=== PATIENT | male | born 1970 | race African-American/Black ===

== ENCOUNTER 2021-05-19 16:23 | Inpatient (IN) | payer SELFPAY ==
[~2021-05-19] VITALS: Ht 180.3 cm; Wt 167.8 kg
[2021-05-19] MEDS ORDERED: ASPIRIN 81 MG CHEW TAB PO ONE ×2 (17:00→20:00)
[2021-05-19] MEDS ORDERED: FUROSEMIDE INJ 10 MG/ML 4 ML VIAL IV ONE (17:00)
[2021-05-19 17:07] LABS: BASOPHILS # (AUTO) 0.1 (0.0-0.1); BASOPHILS % 0.6 % (0.0-1.0); EOSINOPHILS # (AUTO) 0.4 (0.0-0.4); HEMATOCRIT 42.7 % (38.2-49.6); HEMOGLOBIN 13.1 g/dL (14.0-18.0); LYMPHOCYTES # (AUTO) 3.3 (1.0-3.2); LYMPHOCYTES % 18.6 % (18.0-39.1); MEAN CORPUSCULAR HEMOGLOBIN 28.1 pg (28-32); MEAN CORPUSCULAR HGB CONC 30.7 g/dL (31-35); MEAN CORPUSCULAR VOLUME 91.6 fL (81-99); MONOCYTES # (AUTO) 1.4 (0.2-0.8); MONOCYTES % 7.6 % (4.4-11.3); NEUTROPHILS # (AUTO) 12.7 (2.1-6.9); NEUTROPHILS % 70.8 % (38.7-80.0); PLATELET COUNT 217 x10e3/uL (140-360); RED BLOOD COUNT 4.66 x10e6/uL (4.3-5.7); RED CELL DISTRIBUTION WIDTH 14.6 % (11.7-14.4)
[2021-05-19 17:30] LABS: ALBUMIN 3.1 g/dL (3.5-5.0); ALBUMIN/GLOBULIN RATIO 0.8 (0.8-2.0); ANION GAP 11.9 mmol/L (8-16); CALCIUM 8.7 mg/dL (8.4-10.2); CREATININE, SERUM 1.25 mg/dL (0.72-1.25); POTASSIUM 3.9 mmol/L (3.5-5.1)
[2021-05-19 23:20] VITALS: BP 141/86
[2021-05-20] VITALS (9 sets, daily range): BP systolic 131–146; BP diastolic 80–96
[2021-05-20] MEDS ORDERED: LISINOPRIL5 MG PO (01:12)
[2021-05-20] MEDS ORDERED: METOPROLOL TART25 MG PO (01:12)
[2021-05-20] MEDS ORDERED: ASPIRIN81 MG PO (01:12)
[2021-05-20] MEDS ORDERED: LASIX40 MG PO (01:12)
[2021-05-20 05:19] LABS: CREATINE KINASE MB 0.9 ng/mL (0-5.0)
[2021-05-20] MEDS ORDERED: SODIUM CHLORIDE 0.9% 250ML 250 ML ONE (09:33)
[2021-05-20] MEDS: CEFTRIAXONE 1 GM in SODIUM CHLORIDE 0.9% 50ML 50 ML IV SCH (09:41)
[2021-05-20 12:50] LABS: CREATINE KINASE MB 0.9 ng/mL (0-5.0)
[2021-05-20] MEDS: FUROSEMIDE INJ 10 MG/ML 4 ML VIAL IV SCH (16:44)
[2021-05-20] MEDS: AZITHROMYCIN 250 MG TAB PO SCH (16:44)
[2021-05-21] VITALS (7 sets, daily range): BP systolic 130–161; BP diastolic 71–104
[2021-05-21] MEDS: CEFTRIAXONE 1 GM in SODIUM CHLORIDE 0.9% 50ML 50 ML IV SCH (08:39)
[2021-05-21] MEDS: FUROSEMIDE INJ 10 MG/ML 4 ML VIAL IV SCH ×2 (08:39→16:48)
[2021-05-21] MEDS ORDERED: FUROSEMIDE 40 MG TAB PO SCH (09:00)
[2021-05-21] MEDS ORDERED: REGADENOSON 0.4 MG/5 ML SYR IV ONE (12:47)
[2021-05-21 14:04] LABS: BASOPHILS # (AUTO) 0.1 (0.0-0.1); BASOPHILS % 0.4 % (0.0-1.0); EOSINOPHILS # (AUTO) 0.3 (0.0-0.4); EOSINOPHILS % 1.7 % (0.0-6.0); HEMATOCRIT 48.7 % (38.2-49.6); HEMOGLOBIN 14.9 g/dL (14.0-18.0); LYMPHOCYTES # (AUTO) 2.1 (1.0-3.2); LYMPHOCYTES % 13.4 % (18.0-39.1); MEAN CORPUSCULAR HEMOGLOBIN 27.9 pg (28-32); MEAN CORPUSCULAR HGB CONC 30.6 g/dL (31-35); MEAN CORPUSCULAR VOLUME 91.2 fL (81-99); MONOCYTES # (AUTO) 0.6 (0.2-0.8); MONOCYTES % 3.9 % (4.4-11.3); NEUTROPHILS # (AUTO) 12.8 (2.1-6.9); NEUTROPHILS % 80.3 % (38.7-80.0); PLATELET COUNT 249 x10e3/uL (140-360); RED BLOOD COUNT 5.34 x10e6/uL (4.3-5.7); RED CELL DISTRIBUTION WIDTH 14.1 % (11.7-14.4)
[2021-05-21 14:24] LABS: ANION GAP 16.1 mmol/L (8-16); CALCIUM 9.3 mg/dL (8.4-10.2); CREATININE, SERUM 1.34 mg/dL (0.72-1.25); POTASSIUM 4.1 mmol/L (3.5-5.1)
[2021-05-21] MEDS: LISINOPRIL 2.5 MG TAB PO SCH (16:47)
[2021-05-21] MEDS: ASPIRIN 81 MG CHEW TAB PO SCH (16:47)
[2021-05-21] MEDS: METOPROLOL TARTRATE 25 MG TAB PO SCH (16:47)
[2021-05-21] MEDS: AZITHROMYCIN 250 MG TAB PO SCH (16:48)
[2021-05-22] VITALS: BP 126/78
[2021-05-22 04:00] VITALS: BP 111/76
[2021-05-22 08:00] VITALS: BP 130/71
[2021-05-22 08:23] VITALS: BP 130/71
[2021-05-22 12:21] VITALS: BP 134/77
[2021-05-22] MEDS: CEFTRIAXONE 1 GM in SODIUM CHLORIDE 0.9% 50ML 50 ML IV SCH (12:25)
[2021-05-22] MEDS: METOPROLOL TARTRATE 25 MG TAB PO SCH (12:25)
[2021-05-22] MEDS: FUROSEMIDE INJ 10 MG/ML 4 ML VIAL IV SCH (12:25)
[2021-05-22] MEDS: LISINOPRIL 2.5 MG TAB PO SCH (12:25)
[2021-05-22] MEDS: ASPIRIN 81 MG CHEW TAB PO SCH (12:34)
[2021-05-22 16:30] VITALS: BP 115/80
[2021-05-22] MEDS ORDERED: ZITHROMAX250 MG PO (16:41)
[2021-05-22] MEDS: AZITHROMYCIN 250 MG TAB PO SCH (16:47)
[2021-05-22 17:07] LABS: BASOPHILS # (AUTO) 0.1 (0.0-0.1); BASOPHILS % 0.6 % (0.0-1.0); EOSINOPHILS # (AUTO) 0.4 (0.0-0.4); EOSINOPHILS % 2.5 % (0.0-6.0); HEMATOCRIT 44.9 % (38.2-49.6); HEMOGLOBIN 13.7 g/dL (14.0-18.0); LYMPHOCYTES # (AUTO) 2.9 (1.0-3.2); LYMPHOCYTES % 20.1 % (18.0-39.1); MEAN CORPUSCULAR HEMOGLOBIN 27.5 pg (28-32); MEAN CORPUSCULAR HGB CONC 30.5 g/dL (31-35); MONOCYTES # (AUTO) 1.2 (0.2-0.8); MONOCYTES % 8.4 % (4.4-11.3); NEUTROPHILS # (AUTO) 9.6 (2.1-6.9); NEUTROPHILS % 67.8 % (38.7-80.0); PLATELET COUNT 221 x10e3/uL (140-360); RED BLOOD COUNT 4.99 x10e6/uL (4.3-5.7); RED CELL DISTRIBUTION WIDTH 14.3 % (11.7-14.4)
[2021-05-22] MEDS ORDERED: FUROSEMIDE INJ 10 MG/ML 4 ML VIAL IV SCH (21:00)
== END 2021-05-22 17:40 | disposition home or self-care (01) | DRG 193 ==
LOC: ER 16:42 → ERHOLD 19:59 → MED/SURG 23:00 → OBSVTOIN 05-20 10:24
PROVIDERS: ADMIT Internal Medicine; ATTEND Internal Medicine
DX: J18.9 Pneumonia, unspecified organism (principal); I50.23 Acute on chronic systolic (congestive) heart failure; Z68.43 Body mass index [BMI] 50.0-59.9, adult; I11.0 Hypertensive heart disease with heart failure; E66.01 Morbid (severe) obesity due to excess calories; G47.33 Obstructive sleep apnea (adult) (pediatric); Z20.822 Contact with and (suspected) exposure to COVID-19; Z93.3 Colostomy status; R91.1 Solitary pulmonary nodule
CPT/HCPCS: 36415; 71045; 71250; 78452; 80048; 80053; 80061; 82550; 82553; 83880; 84484; 85025; 85379; 93005; 93017; 93306; 94799; 99284; A9502; G0378; J0456; J0696; J1940; J7050; U0002

== ENCOUNTER 2021-06-18 13:24 | Emergency (ER) | payer SELFPAY ==
[~2021-06-18] VITALS: Ht 180.3 cm; Wt 167.8 kg
[~2021-06-18 13:24] MED LIST: ASPIRIN81 MG PO; LASIX40 MG PO; LISINOPRIL5 MG PO; METOPROLOL TART25 MG PO; ZITHROMAX250 MG PO
[2021-06-18] MEDS ORDERED: FUROSEMIDE INJ 10 MG/ML 4 ML VIAL IV ONE (13:30)
[2021-06-18] MEDS ORDERED: LASIX40 MG PO (13:35)
[2021-06-18 13:47] LABS: BASOPHILS # (AUTO) 0.1 (0.0-0.1); BASOPHILS % 0.4 % (0.0-1.0); EOSINOPHILS # (AUTO) 0.3 (0.0-0.4); EOSINOPHILS % 1.9 % (0.0-6.0); HEMATOCRIT 46.9 % (38.2-49.6); HEMOGLOBIN 14.4 g/dL (14.0-18.0); LYMPHOCYTES # (AUTO) 2.7 (1.0-3.2); LYMPHOCYTES % 16.3 % (18.0-39.1); MEAN CORPUSCULAR HEMOGLOBIN 28.2 pg (28-32); MEAN CORPUSCULAR HGB CONC 30.7 g/dL (31-35); MEAN CORPUSCULAR VOLUME 91.8 fL (81-99); MONOCYTES # (AUTO) 1.5 (0.2-0.8); NEUTROPHILS # (AUTO) 12.2 (2.1-6.9); PLATELET COUNT 270 x10e3/uL (140-360); RED BLOOD COUNT 5.11 x10e6/uL (4.3-5.7); RED CELL DISTRIBUTION WIDTH 14.5 % (11.7-14.4)
[2021-06-18 14:08] LABS: ALBUMIN 3.6 g/dL (3.5-5.0); ALBUMIN/GLOBULIN RATIO 0.8 (0.8-2.0); CALCIUM 9.9 mg/dL (8.4-10.2); CREATININE, SERUM 1.12 mg/dL (0.72-1.25)
== END 2021-06-18 15:24 | disposition home or self-care (01) ==
LOC: ER 13:28
DX: R06.02 Shortness of breath (principal); E87.70 Fluid overload, unspecified; I50.9 Heart failure, unspecified; I10 Essential (primary) hypertension; R94.31 Abnormal electrocardiogram [ECG] [EKG]
CPT/HCPCS: 36415; 71045; 80053; 83605; 83880; 84484; 85025; 87040; 93005; 99284; J1940

== ENCOUNTER 2021-10-30 14:05 | Inpatient (IN) | payer SELFPAY ==
[~2021-10-30] VITALS: Ht 180.3 cm; Wt 167.8 kg
[2021-10-30] MEDS ORDERED: ASPIRIN 325 MG TAB PO ONE (14:30)
[2021-10-30] MEDS ORDERED: SODIUM CHLORIDE FLUSH 10 ML SYR IV PRN (14:30)
[2021-10-30 15:10] LABS: BASOPHILS # (AUTO) 0.1 (0.0-0.1); BASOPHILS % 0.7 % (0.0-1.0); EOSINOPHILS # (AUTO) 0.4 (0.0-0.4); EOSINOPHILS % 2.8 % (0.0-6.0); HEMATOCRIT 43.9 % (38.2-49.6); HEMOGLOBIN 13.6 g/dL (14.0-18.0); LYMPHOCYTES # (AUTO) 2.4 (1.0-3.2); LYMPHOCYTES % 18.5 % (18.0-39.1); MEAN CORPUSCULAR HEMOGLOBIN 28.3 pg (28-32); MEAN CORPUSCULAR VOLUME 91.3 fL (81-99); MONOCYTES # (AUTO) 0.9 (0.2-0.8); NEUTROPHILS # (AUTO) 9.1 (2.1-6.9); NEUTROPHILS % 70.7 % (38.7-80.0); PLATELET COUNT 261 x10e3/uL (140-360); RED BLOOD COUNT 4.81 x10e6/uL (4.3-5.7); RED CELL DISTRIBUTION WIDTH 13.2 % (11.7-14.4)
[2021-10-30 15:20] LABS: AMPHETAMINES SCREEN,URINE NEGATIVE (NEGATIVE); BENZODIAZEPINES SCREEN,URINE NEGATIVE (NEGATIVE); PHENCYCLIDINE SCREEN,URINE NEGATIVE (NEGATIVE)
[2021-10-30 15:25] LABS: INR 0.87; PROTHROMBIN TIME 12.6 seconds (11.9-14.5)
[2021-10-30 15:26] LABS: PARTIAL THROMBOPLASTIN TIME 28.1 seconds (23.8-35.5)
[2021-10-30 15:32] LABS: ALBUMIN/GLOBULIN RATIO 0.6 (0.8-2.0); CREATININE, SERUM 1.18 mg/dL (0.72-1.25)
[2021-10-30 15:38] LABS: CALCIUM 8.3 mg/dL (8.4-10.2)
[2021-10-30] MEDS ORDERED: ASPIRIN 81 MG CHEW TAB PO ONE (16:15)
[2021-10-30] MEDS ORDERED: Morphine 4mg Syringe 4 MG/ML INJ IV PRN (16:15)
[2021-10-30] MEDS ORDERED: ONDANSETRON HCL INJ 2MG/ML 2ML 2 MG/ML VIAL IV PRN ×2 (16:15→18:15)
[2021-10-30] MEDS ORDERED: ACETAMINOPHEN 325 MG TAB PO PRN (18:15)
[2021-10-30] MEDS ORDERED: DOCUSATE SODIUM 100 MG CAP PO PRN (18:15)
[2021-10-30 18:32] LABS: CHOL/HDL RATIO 4.7 (3.9-4.7)
[2021-10-30 20:00] VITALS: BP 144/94
[2021-10-30] MEDS: FUROSEMIDE INJ 10 MG/ML 4 ML VIAL IV SCH ×2 (20:50→22:48)
[2021-10-30 21:55] LABS: CREATINE KINASE MB 0.8 ng/mL (0-5.0)
[2021-10-31] VITALS (7 sets, daily range): BP systolic 137–159; BP diastolic 79–97
[2021-10-31] MEDS ORDERED: ASPIRIN 81 MG CHEW TAB PO ONE (00:45)
[2021-10-31 06:35] LABS: BASOPHILS # (AUTO) 0.1 (0.0-0.1); BASOPHILS % 0.6 % (0.0-1.0); EOSINOPHILS # (AUTO) 0.4 (0.0-0.4); EOSINOPHILS % 3.3 % (0.0-6.0); HEMATOCRIT 46.7 % (38.2-49.6); HEMOGLOBIN 14.4 g/dL (14.0-18.0); LYMPHOCYTES # (AUTO) 1.9 (1.0-3.2); LYMPHOCYTES % 16.4 % (18.0-39.1); MEAN CORPUSCULAR HEMOGLOBIN 28.4 pg (28-32); MEAN CORPUSCULAR HGB CONC 30.8 g/dL (31-35); MEAN CORPUSCULAR VOLUME 92.1 fL (81-99); MONOCYTES # (AUTO) 0.9 (0.2-0.8); MONOCYTES % 7.9 % (4.4-11.3); NEUTROPHILS % 71.5 % (38.7-80.0); PLATELET COUNT 238 x10e3/uL (140-360); RED BLOOD COUNT 5.07 x10e6/uL (4.3-5.7); RED CELL DISTRIBUTION WIDTH 13.3 % (11.7-14.4)
[2021-10-31 07:04] LABS: ALBUMIN 3.3 g/dL (3.5-5.0); ALBUMIN/GLOBULIN RATIO 0.7 (0.8-2.0); ANION GAP 12.2 mmol/L (8-16); CREATININE, SERUM 1.25 mg/dL (0.72-1.25); POTASSIUM 4.2 mmol/L (3.5-5.1)
[2021-10-31 07:20] LABS: CREATINE KINASE 134 IU/L (30-200)
[2021-10-31] MEDS ORDERED: FUROSEMIDE 40 MG TAB PO SCH (09:00)
[2021-10-31] MEDS: ASPIRIN 81 MG CHEW TAB PO SCH (10:28)
[2021-10-31] MEDS: FUROSEMIDE INJ 10 MG/ML 4 ML VIAL IV SCH ×2 (10:28→21:10)
[2021-10-31] MEDS: METFORMIN HCL 500 MG TAB PO SCH ×2 (10:30→11:06)
[2021-10-31] MEDS: METOPROLOL TARTRATE 25 MG TAB PO SCH (10:30)
[2021-10-31] MEDS: LISINOPRIL 2.5 MG TAB PO SCH (10:30)
[2021-10-31 13:29] LABS: CREATINE KINASE MB 0.8 ng/mL (0-5.0)
[2021-11-01] VITALS: BP 148/86
[2021-11-01 04:00] VITALS: BP 137/77
[2021-11-01 05:56] LABS: ANION GAP 13.8 mmol/L (8-16); CALCIUM 9.3 mg/dL (8.4-10.2); CREATININE, SERUM 1.26 mg/dL (0.72-1.25); POTASSIUM 3.8 mmol/L (3.5-5.1)
[2021-11-01 08:06] VITALS: BP 120/82
[2021-11-01 10:02] VITALS: BP 120/82
[2021-11-01] MEDS: FUROSEMIDE INJ 10 MG/ML 4 ML VIAL IV SCH (10:31)
[2021-11-01] MEDS: ASPIRIN 81 MG CHEW TAB PO SCH (10:32)
[2021-11-01] MEDS: METFORMIN HCL 500 MG TAB PO SCH (10:32)
[2021-11-01] MEDS: METOPROLOL TARTRATE 25 MG TAB PO SCH (10:36)
[2021-11-01] MEDS: LISINOPRIL 2.5 MG TAB PO SCH (10:37)
[2021-11-01 11:22] VITALS: BP 136/79
[2021-11-01] MEDS ORDERED: PANTOPRAZOLE SOD 40 MG TABEC PO SCH (13:45)
[2021-11-01] MEDS ORDERED: MELOXICAM 7.5 MG TAB PO SCH (13:45)
[2021-11-01] MEDS ORDERED: PANTOPRAZOLE SO40 MG PO (14:07)
[2021-11-01] MEDS ORDERED: LASIX40 MG PO (14:07)
[2021-11-01] MEDS ORDERED: METFORMIN HCL500 MG PO (14:07)
[2021-11-01] MEDS ORDERED: MELOXICAM7.5 MG PO (14:07)
[2021-11-01] MEDS ORDERED: K DUR10 MEQ PO (14:07)
== END 2021-11-01 16:58 | disposition home or self-care (01) | DRG 291 ==
LOC: ER 14:14 → ERHOLD 16:09 → MED/SURG2 18:35 → OBSVTOIN 10-31 17:35
PROVIDERS: ADMIT Internal Medicine; ATTEND Internal Medicine
DX: I11.0 Hypertensive heart disease with heart failure (principal); I50.33 Acute on chronic diastolic (congestive) heart failure; J96.01 Acute respiratory failure with hypoxia; Z68.43 Body mass index [BMI] 50.0-59.9, adult; E66.01 Morbid (severe) obesity due to excess calories; G47.33 Obstructive sleep apnea (adult) (pediatric); Z99.81 Dependence on supplemental oxygen; R73.03 Prediabetes; Z20.822 Contact with and (suspected) exposure to COVID-19
CPT/HCPCS: 36415; 71045; 80048; 80053; 80061; 80307; 82550; 82553; 83036; 83880; 84484; 85025; 85610; 85730; 93005; 93306; 94660; 94760; 94799; 99284; G0378; J1940; J2270; J2405; U0002

== ENCOUNTER 2022-10-10 14:04 | Inpatient (IN) | payer SELFPAY ==
[~2022-10-10] VITALS: Ht 180.3 cm; Wt 147.4 kg
[~2022-10-10 14:04] MED LIST changes: +Benzonatate PO; +CEPHALEXIN500 MG PO; +K DUR10 MEQ PO; +MELOXICAM7.5 MG PO; +METFORMIN HCL500 MG PO; +NICODERM CQ1 EAC2 TOP; +NORVASC10 MG PO; +PANTOPRAZOLE SO40 MG PO; +ZITHROMAX500 MG PO
[2022-10-10] MEDS ORDERED: ASPIRIN 81 MG CHEW TAB PO ONE ×2 (14:45→18:00)
[2022-10-10 15:21] LABS: BASOPHILS # (AUTO) 0.1 (0.0-0.1); BASOPHILS % 0.5 % (0.0-1.0); EOSINOPHILS # (AUTO) 0.3 (0.0-0.4); EOSINOPHILS % 1.6 % (0.0-6.0); HEMATOCRIT 44.8 % (38.2-49.6); HEMOGLOBIN 13.7 g/dL (14.0-18.0); LYMPHOCYTES # (AUTO) 1.9 (1.0-3.2); LYMPHOCYTES % 11.9 % (18.0-39.1); MEAN CORPUSCULAR HEMOGLOBIN 29.1 pg (28-32); MEAN CORPUSCULAR HGB CONC 30.6 g/dL (31-35); MEAN CORPUSCULAR VOLUME 95.3 fL (81-99); NEUTROPHILS % 79.6 % (38.7-80.0); PLATELET COUNT 243 x10e3/uL (140-360); RED CELL DISTRIBUTION WIDTH 13.4 % (11.7-14.4)
[2022-10-10 15:31] LABS: INR 0.97; PROTHROMBIN TIME 13.4 seconds (11.9-14.5)
[2022-10-10 15:32] LABS: PARTIAL THROMBOPLASTIN TIME 28.2 seconds (23.8-35.5)
[2022-10-10] MEDS ORDERED: ASPIRIN 81 MG CHEW TAB PO STA (15:33)
[2022-10-10 15:44] LABS: ALBUMIN 3.3 g/dL (3.5-5.0); ALBUMIN/GLOBULIN RATIO 0.7 (0.8-2.0); CALCIUM 9.3 mg/dL (8.4-10.2); CREATININE, SERUM 1.21 mg/dL (0.72-1.25)
[2022-10-10 15:51] LABS: CREATINE KINASE MB 1.4 ng/mL (0-5.0)
[2022-10-10] MEDS ORDERED: ASPIRIN 81 MG CHEW TAB ONE (16:11)
[2022-10-10] MEDS ORDERED: CEFTRIAXONE 1 GM VIAL IV ONE (18:00)
[2022-10-10] MEDS ORDERED: ONDANSETRON HCL INJ 2MG/ML 2ML 2 MG/ML VIAL IV PRN (18:00)
[2022-10-10] MEDS ORDERED: SODIUM CHLORIDE FLUSH 10 ML SYR INJ PRN (18:00)
[2022-10-10] MEDS: FUROSEMIDE INJ 10 MG/ML 4 ML VIAL IV SCH (21:55)
[2022-10-10 23:05] LABS: CREATINE KINASE MB 1.2 ng/mL (0-5.0)
[2022-10-11] VITALS (12 sets, daily range): BP systolic 139–158; BP diastolic 82–95; PULSE 72–92; RESP 18–22; TEMP 97.7–98.6; O2SAT 96–100
[2022-10-11] MEDS ORDERED: METOPROLOL TART25 MG PO (01:17)
[2022-10-11] MEDS ORDERED: LISINOPRIL5 MG PO (01:18)
[2022-10-11] MEDS ORDERED: LASIX40 MG PO (01:18)
[2022-10-11 06:03] LABS: BASOPHILS # (AUTO) 0.1 (0.0-0.1); BASOPHILS % 0.5 % (0.0-1.0); EOSINOPHILS # (AUTO) 0.3 (0.0-0.4); HEMATOCRIT 41.3 % (38.2-49.6); HEMOGLOBIN 13.2 g/dL (14.0-18.0); LYMPHOCYTES # (AUTO) 2.5 (1.0-3.2); MEAN CORPUSCULAR HEMOGLOBIN 29.2 pg (28-32); MEAN CORPUSCULAR VOLUME 91.4 fL (81-99); MONOCYTES # (AUTO) 1.2 (0.2-0.8); MONOCYTES % 7.7 % (4.4-11.3); NEUTROPHILS # (AUTO) 11.3 (2.1-6.9); NEUTROPHILS % 73.5 % (38.7-80.0); PLATELET COUNT 236 x10e3/uL (140-360); RED BLOOD COUNT 4.52 x10e6/uL (4.3-5.7); RED CELL DISTRIBUTION WIDTH 13.6 % (11.7-14.4)
[2022-10-11 06:18] LABS: CREATINE KINASE MB 1.1 ng/mL (0-5.0)
[2022-10-11 06:37] LABS: ALBUMIN 3.1 g/dL (3.5-5.0); ALBUMIN/GLOBULIN RATIO 0.7 (0.8-2.0); ANION GAP 11.9 mmol/L (8-16); CALCIUM 8.9 mg/dL (8.4-10.2); CREATININE, SERUM 1.18 mg/dL (0.72-1.25); POTASSIUM 3.9 mmol/L (3.5-5.1)
[2022-10-11] MEDS: FUROSEMIDE INJ 10 MG/ML 4 ML VIAL IV SCH ×2 (09:10→21:58)
[2022-10-11 11:49] LABS: CREATINE KINASE MB 1.3 ng/mL (0-5.0)
[2022-10-11] MEDS: DICLOFENAC SOD 1% GEL 100 GM TUBE TP SCH ×2 (14:22→22:08)
[2022-10-12] VITALS (12 sets, daily range): BP systolic 115–143; BP diastolic 63–90; PULSE 69–86; RESP 16–22; TEMP 97–98.4; O2SAT 95–100
[2022-10-12] MEDS: LISINOPRIL 2.5 MG TAB PO SCH (08:40)
[2022-10-12] MEDS: METOPROLOL TARTRATE 25 MG TAB PO SCH (08:40)
[2022-10-12] MEDS: FUROSEMIDE INJ 10 MG/ML 4 ML VIAL IV SCH ×2 (08:40→21:11)
[2022-10-12] MEDS: DICLOFENAC SOD 1% GEL 100 GM TUBE TP SCH ×3 (09:43→21:12)
[2022-10-12 19:05] LABS: CALCIUM 9.3 mg/dL (8.4-10.2); CREATININE, SERUM 1.42 mg/dL (0.72-1.25)
[2022-10-13] VITALS (8 sets, daily range): BP systolic 100–135; BP diastolic 70–86; PULSE 66–81; RESP 16–21; TEMP 97.4–98; O2SAT 94–100
[2022-10-13] MEDS: LISINOPRIL 2.5 MG TAB PO SCH (08:46)
[2022-10-13] MEDS: FUROSEMIDE INJ 10 MG/ML 4 ML VIAL IV SCH (08:46)
[2022-10-13] MEDS: METOPROLOL TARTRATE 25 MG TAB PO SCH (08:47)
[2022-10-13] MEDS: DICLOFENAC SOD 1% GEL 100 GM TUBE TP SCH ×2 (09:09→17:27)
[2022-10-13] MEDS ORDERED: ENOXAPARIN 30 MG/0.3 ML SYR SC SCH (17:00)
[2022-10-13] MEDS ORDERED: LASIX40 MG PO (19:31)
== END 2022-10-13 20:00 | disposition home or self-care (01) | DRG 291 ==
LOC: ER 14:44 → ERHOLD 17:55 → MED/SURG3 10-11 00:46
PROVIDERS: ADMIT Family Medicine; ATTEND Family Medicine
DX: I11.0 Hypertensive heart disease with heart failure (principal); I50.31 Acute diastolic (congestive) heart failure; K51.90 Ulcerative colitis, unspecified, without complications; G47.30 Sleep apnea, unspecified; Z93.3 Colostomy status; E78.5 Hyperlipidemia, unspecified; Z20.822 Contact with and (suspected) exposure to COVID-19; Z79.82 Long term (current) use of aspirin
CPT/HCPCS: 36415; 71045; 80048; 80053; 82550; 82553; 83880; 84484; 85025; 85610; 85730; 87040; 93005; 93306; 94660; 94799; 99284; J0696; J1650; J1940; J7050